=== PATIENT | female | born 1945 | race Hispanic/Latino ===

== ENCOUNTER → 2017-12-14 | Outpatient (CLI) | payer MEDICARE ==
[~2017-12-14] MED LIST: ASPI-1181 PO; ISOS60TA4 PO; METF-444 PO; METO-391 PO; NITR0.4T SL; PRAS10TA6 PO; RAMI10CA69 PO; ROSU40TA20 PO; SERT25TA5 PO; [UNRECOGNIZED DRUG - CODE] PO
== END | disposition home or self-care (01) ==
LOC: RAH 09:41
PROVIDERS: ATTEND Urology
DX: N28.1 Cyst of kidney, acquired (principal); N32.89 Other specified disorders of bladder; I10 Essential (primary) hypertension; E11.9 Type 2 diabetes mellitus without complications; E78.5 Hyperlipidemia, unspecified; I25.10 Atherosclerotic heart disease of native coronary artery without angina pectoris; Z90.49 Acquired absence of other specified parts of digestive tract
CPT/HCPCS: 76770

== ENCOUNTER → 2021-12-04 | Outpatient (CLI) | payer MEDICARE ==
[~2021-12-04] MED LIST changes: -ASPI-1181 PO; +ASPI-1443 PO; -ISOS60TA4 PO; +ISOS60TA77 PO; +MULT-1329 PO; -ROSU40TA20 PO; +ROSU40TA21 PO; +SERT-438 PO; -SERT25TA5 PO; -[UNRECOGNIZED DRUG - CODE] PO
== END | disposition home or self-care (01) ==
LOC: RAH 14:14
PROVIDERS: ATTEND Family Medicine
DX: M47.26 Other spondylosis with radiculopathy, lumbar region (principal); M43.17 Spondylolisthesis, lumbosacral region; M54.16 Radiculopathy, lumbar region; R26.9 Unspecified abnormalities of gait and mobility; M51.37 Other intervertebral disc degeneration, lumbosacral region
CPT/HCPCS: 72148

== ENCOUNTER → 2022-04-11 | Outpatient (CLI) | payer MEDICARE | END | disposition home or self-care (01) | LOC: RAH 10:54 | PROVIDERS: ATTEND Physical Medicine & Rehabilitation | DX: R26.89 Other abnormalities of gait and mobility (principal); M47.812 Spondylosis without myelopathy or radiculopathy, cervical region | CPT/HCPCS: 70551; 72141 ==

== ENCOUNTER → 2022-07-02 | Outpatient (CLI) | payer MEDICARE ==
[2022-07-02 12:10] LABS: BASOPHILS % (AUTO) 1.3 % (0.0-5.0); EOSINOPHILS % (AUTO) 2.7 % (0.0-8.0); HEMATOCRIT 36.8 % (36-48); LYMPHOCYTES % (AUTO) 32.3 % (21.0-51.0); MEAN CORPUSCULAR HEMOGLOBIN 28.1 pg (27.0-33.0); MEAN CORPUSCULAR HGB CONC 31.5 g/dL (32.0-36.0); MEAN CORPUSCULAR VOLUME 89.1 fL (79-99); MONOCYTES % (AUTO) 8.3 % (3.0-13.0); PLATELET COUNT (AUTO) 271 K/uL (130-400); RED BLOOD CELL COUNT(AUTO) 4.13 MIL/uL (4.00-5.50); RED CELL DISTRIBUTION WIDTH 14.6 % (11.0-15.5); WHITE BLOOD COUNT (AUTO) 9.2 K/uL (4.8-10.8)
[2022-07-02 12:55] LABS: FERRITIN 31 ng/mL (15-150); THYROID STIMULATING HORMONE 6.47 uIU/mL (0.36-3.74)
[2022-07-02 13:11] LABS: % IRON SATURATION 12.1 % (22-44)
== END | disposition home or self-care (01) ==
LOC: LAB 08:05
PROVIDERS: ATTEND Internal Medicine Cardiovascular Disease
DX: D64.9 Anemia, unspecified (principal); I10 Essential (primary) hypertension; I25.119 Atherosclerotic heart disease of native coronary artery with unspecified angina pectoris; I95.1 Orthostatic hypotension; E78.5 Hyperlipidemia, unspecified; Z95.5 Presence of coronary angioplasty implant and graft; Z79.899 Other long term (current) drug therapy
CPT/HCPCS: 36415; 82383; 82533; 82607; 82728; 82746; 83540; 83550; 84439; 84443; 85025; 86592

== ENCOUNTER → 2022-08-07 | Outpatient (CLI) | payer MEDICARE | END | disposition home or self-care (01) | LOC: RAH 12:46 | PROVIDERS: ATTEND Family Medicine | DX: R13.13 Dysphagia, pharyngeal phase (principal); R63.30 Feeding difficulties, unspecified; R09.89 Other specified symptoms and signs involving the circulatory and respiratory systems; Z87.898 Personal history of other specified conditions | CPT/HCPCS: 74230; 92611 ==

== ENCOUNTER → 2022-08-22 | Outpatient (CLI) | payer MEDICARE ==
[2022-08-22 12:17] LABS: CREATININE 0.9 mg/dL (0.5-1.5); POTASSIUM 4.3 mmol/L (3.5-5.1)
== END | disposition home or self-care (01) ==
LOC: LAB 09:08
PROVIDERS: ATTEND Internal Medicine Cardiovascular Disease
DX: I95.1 Orthostatic hypotension (principal)
CPT/HCPCS: 36415; 80048

== ENCOUNTER → 2023-06-23 | Outpatient (CLI) | payer MEDICARE ==
[~2023-06-23] MED LIST changes: +REGADENOSON 0.4 MG/5 ML PF SYG IVP ONE
[2023-06-23] MEDS: REGADENOSON 0.4 MG/5 ML PF SYG IVP ONE (15:02)
== END | disposition home or self-care (01) ==
LOC: SHCH 09:27
PROVIDERS: ATTEND Internal Medicine Cardiovascular Disease
DX: I25.119 Atherosclerotic heart disease of native coronary artery with unspecified angina pectoris (principal)
CPT/HCPCS: 78452; 96374; 93017; A9500 ×2; J2785 ×2

== ENCOUNTER → 2023-08-17 | Outpatient (CLI) | payer MEDICARE ==
[~2023-08-17] MED LIST changes: -RAMI10CA69 PO; +RAMI10CA76 PO; -REGADENOSON 0.4 MG/5 ML PF SYG IVP ONE; -ROSU40TA21 PO; +ROSU40TA70 PO
== END | disposition home or self-care (01) ==
LOC: RAH 14:15
PROVIDERS: ATTEND Physical Medicine & Rehabilitation
DX: S33.39 Dislocation of other parts of lumbar spine and pelvis (principal); M47.26 Other spondylosis with radiculopathy, lumbar region; X58.XXXD Exposure to other specified factors, subsequent encounter
CPT/HCPCS: 72148

== ENCOUNTER → 2023-11-05 | Outpatient (CLI) | payer MEDICARE | END | disposition home or self-care (01) | LOC: RAH 14:25 | PROVIDERS: ATTEND Family Medicine | DX: M47.812 Spondylosis without myelopathy or radiculopathy, cervical region (principal); M48.02 Spinal stenosis, cervical region; M50.31 Other cervical disc degeneration, high cervical region; M54.9 Dorsalgia, unspecified | CPT/HCPCS: 72141; 72146 ==